=== PATIENT | male | born 1945 | race Caucasian/White ===

== ENCOUNTER 2019-01-20 07:52 | Inpatient (IN) | payer OTHER ==
[~2019-01-20] VITALS: Ht 172.7 cm; Wt 83.9 kg
[~2019-01-20 07:52] MED LIST: CARAFATE1 GM PO; CARDURA8 MG PO; FORTAMET1000 MG PO; GLIMEPIRIDE4 MG PO; HORIZANT600 MG PO; HYDROCHLOROTHIA25 MG PO; MESTINON60 MG PO; NORVASC2.5 M1 PO; PEPCID AC20 MG PO; PROTONIX40 MG PO; SYNTROID PO; TOPROL XL50 M1 PO; TRICOR145 MG PO
[2019-01-23] MEDS ORDERED: TRAMADOL HCL50 MG PO (09:03)
[2019-01-23] MEDS ORDERED: TYLENOL EXTRA500 MG PO (09:03)
[2019-01-23] MEDS ORDERED: NEURONTIN300 MG PO (09:03)
[2019-01-23] MEDS ORDERED: MIRALAX17 GM PO (09:03)
== END 2019-01-23 09:49 | disposition home or self-care (01) | DRG 328 ==
LOC: SURG 01-21 05:41 → O/R 01-21 05:41 → SURH 01-21 10:00 → SURG 01-21 13:10 → SURH 01-21 13:22 → SURG 01-22 14:42
PROVIDERS: ADMIT Surgery
PROC: 0BQT4ZZ Repair Diaphragm, Percutaneous Endoscopic Approach (ICD-10-PCS; 2019-01-21)
PROC: 4A12X4Z Monitoring of Cardiac Electrical Activity, External Approach (ICD-10-PCS; 2019-01-21)
PROC: 3E0F7GC Introduction of Other Therapeutic Substance into Respiratory Tract, Via Natural or Artificial Opening (ICD-10-PCS; 2019-01-21)
PROC: 0D844ZZ Division of Esophagogastric Junction, Percutaneous Endoscopic Approach (ICD-10-PCS; principal; 2019-01-21 10:00)
PROC: 0DV44ZZ Restriction of Esophagogastric Junction, Percutaneous Endoscopic Approach (ICD-10-PCS; 2019-01-21 10:00)
PROC: BD11ZZZ Fluoroscopy of Esophagus (ICD-10-PCS; 2019-01-22)
DX: K22.0 Achalasia of cardia (principal); K44.9 Diaphragmatic hernia without obstruction or gangrene; R09.02 Hypoxemia; E11.40 Type 2 diabetes mellitus with diabetic neuropathy, unspecified; I10 Essential (primary) hypertension; I25.10 Atherosclerotic heart disease of native coronary artery without angina pectoris; E78.49 Other hyperlipidemia; K21.9 Gastro-esophageal reflux disease without esophagitis; E03.8 Other specified hypothyroidism; K31.84 Gastroparesis; Z98.61 Coronary angioplasty status